=== PATIENT | male | born 1955 | race Two or more races ===

== ENCOUNTER → 2023-06-20 | Emergency (ER) | payer OTHER, MEDICAID ==
[~2023-06-20] VITALS: Ht 165.1 cm; Wt 50.9 kg
[~2023-06-20] MED LIST: MORPHINE SULFATE 4 MG/ML SYR/VIAL IV ONE; ONDANSETRON HCL 4 MG/2 ML VIAL IV ONE; SODIUM CHLORIDE 0.9% 1,000 ML IV ONE; SODIUM CHLORIDE 0.9% 1,000 ML IVB ONE
[2023-06-20 14:35] VITALS: BP 124/69; PULSE 60; RESP 18; O2SAT 99
== END | disposition left against medical advice (07) ==
LOC: ER 14:01
DX: R10.84 Generalized abdominal pain (principal); R11.2 Nausea with vomiting, unspecified; K59.00 Constipation, unspecified
CPT/HCPCS: 93005

== ENCOUNTER 2023-06-29 14:03 | Emergency (ER) | payer OTHER ==
[~2023-06-29] VITALS: Ht 157.5 cm; Wt 54.4 kg
[2023-06-29 14:35] LABS: Basophils # (auto) 0 10 ^3/uL (0-0.2); Basophils % (auto) 0.6 % (0.0-2.0); Eosinophils # (auto) 0.4 10 ^3/uL (0-0.8); Eosinophils % (auto) 5.9 % (0.0-7.0); Hematocrit 34.3 % (41.0-53.0); Hemoglobin 11.3 g/dL (13.5-17.5); Lymphocytes # (auto) 1.9 10 ^3/uL (0.4-5.4); Lymphocytes % (auto) 25.7 % (10.0-50.0); Mean Corpuscular Hemoglobin 30.5 pg (28.0-32.0); Mean Corpuscular Hgb Conc. 32.9 g/dL (32.0-36.0); Monocytes # (auto) 0.9 10 ^3/uL (0-1.3); Monocytes % (auto) 11.6 % (0.0-12.0); Neutrophils # (auto) 4.2 10 ^3/uL (1.6-8.6); Neutrophils % (auto) 56.2 % (37.0-80.0); Red Blood Cells 3.69 10^6/uL (4.5-5.90); Red Cell Distribution Width 13.8 % (11.8-14.3); White Blood Cell 7.5 10^3/uL (4.4-10.8)
[2023-06-29 14:55] LABS: Alanine Aminotransferase 20 U/L (7-40); Albumin 3.3 g/dL (3.2-4.8); Alkaline Phosphatase 92 U/L (46-116); Anion Gap 7 (5-15); Aspartate Aminotransferase 29 U/L (13-40); BUN/Creatinine Ratio 14.9 (10.0-20.0); Blood Urea Nitrogen 10 mg/dL (9-23); Calcium 8.6 mg/dL (8.7-10.4); Carbon Dioxide 28 mmol/L (20-30); Chloride 105 mmol/L (98-107); Glucose 91 mg/dL (74-106); Lipase 42 U/L (12-53); Potassium 4.3 mmol/L (3.5-5.1); Sodium 140 mmol/L (136-145)
[2023-06-29 14:56] LABS: Bilirubin, Total 0.2 mg/dL (0.2-1.0); Total Protein 5.7 g/dL (5.7-8.2)
[2023-06-29] MEDS ORDERED: DOCUSATE SOD 100 MG CAP PO ONE (16:15)
[2023-06-29 16:27] VITALS: BP 112/75; PULSE 64; RESP 18; TEMP 99.2; O2SAT 99
[2023-06-29] MEDS ORDERED: POLYETHYLENE GLYCOL 17 GM PWDR PO ONE (17:45)
== END 2023-06-29 18:06 | disposition left against medical advice (07) ==
LOC: ER 14:03
DX: R10.84 Generalized abdominal pain (principal); Z98.890 Other specified postprocedural states
CPT/HCPCS: 36415; 71045; 74176; 80053; 83690; 84484; 85025; 93005

== ENCOUNTER 2023-06-30 11:42 | Observation (INO) | payer OTHER ==
[~2023-06-30] VITALS: Ht 157.5 cm; Wt 53.8 kg
[2023-06-30] MEDS ORDERED: ONDANSETRON HCL 4 MG/2 ML VIAL IV ONE (12:30)
[2023-06-30] MEDS ORDERED: MORPHINE SULFATE 4 MG/ML SYR/VIAL IV ONE (12:30)
[2023-06-30] MEDS ORDERED: SODIUM CHLORIDE 0.9% 500 ML IVB ONE (12:30)
[2023-06-30] MEDS ORDERED: PANTOPRAZOLE 40 MG/10 ML VIAL INJ IV ONE (12:30)
[2023-06-30 12:43] LABS: Basophils # (auto) 0.1 10 ^3/uL (0-0.2); Basophils % (auto) 0.5 % (0.0-2.0); Eosinophils # (auto) 0.2 10 ^3/uL (0-0.8); Eosinophils % (auto) 1.6 % (0.0-7.0); Hematocrit 34.9 % (41.0-53.0); Hemoglobin 11.5 g/dL (13.5-17.5); Lymphocytes # (auto) 1.4 10 ^3/uL (0.4-5.4); Mean Corpuscular Hemoglobin 30.5 pg (28.0-32.0); Mean Corpuscular Hgb Conc. 32.9 g/dL (32.0-36.0); Mean Corpuscular Volume 92.6 fL (80.0-100.0); Monocytes # (auto) 1.1 10 ^3/uL (0-1.3); Monocytes % (auto) 7.9 % (0.0-12.0); Neutrophils # (auto) 11.1 10 ^3/uL (1.6-8.6); Red Blood Cells 3.77 10^6/uL (4.5-5.90); Red Cell Distribution Width 13.5 % (11.8-14.3); White Blood Cell 13.9 10^3/uL (4.4-10.8)
[2023-06-30 13:00] LABS: Alanine Aminotransferase 13 U/L (7-40); Albumin 3.6 g/dL (3.2-4.8); Alkaline Phosphatase 77 U/L (46-116); Anion Gap 3 (5-15); Aspartate Aminotransferase 27 U/L (13-40); BUN/Creatinine Ratio 10.4 (10.0-20.0); Bilirubin, Total 0.5 mg/dL (0.2-1.0); Blood Urea Nitrogen 7 mg/dL (9-23); Calcium 8.7 mg/dL (8.5-10.1); Carbon Dioxide 29 mmol/L (20-30); Chloride 103 mmol/L (98-107); Glucose 99 mg/dL (74-106); Potassium 4.1 mmol/L (3.5-5.1); Total Protein 6.3 g/dL (5.7-8.2)
[2023-06-30 13:12] LABS: Sodium 135 mmol/L (136-145)
[2023-06-30 13:23] LABS: Lipase 38 U/L (12-53)
[2023-06-30] MEDS ORDERED: MORPHINE SULFATE INJ 2 MG/ml SYRG IV PRN ×3 (16:15→18:00)
[2023-06-30] MEDS ORDERED: ONDANSETRON HCL 4 MG/2 ML VIAL IV PRN (16:15)
[2023-06-30] MEDS ORDERED: SODIUM CHLORIDE 0.9% 1,000 ML IV SCH (16:15)
[2023-06-30] MEDS ORDERED: NITROGLYCERIN 0.4 MG SL TAB SL PRN (16:15)
[2023-06-30 18:22] VITALS: RESP 16; O2SAT 94
[2023-06-30 20:00] VITALS: PULSE 60; RESP 16; O2SAT 100
[2023-06-30] MEDS ORDERED: D5W/SOD CHLO 0.9% 1,000 ML IV ONE (22:30)
[2023-06-30] MEDS: NICOTINE 14 MG/24HR TOPICAL PATCH TD SCH (23:02)
[2023-07-01 06:01] LABS: Basophils # (auto) 0.1 10 ^3/uL (0-0.2); Basophils % (auto) 0.7 % (0.0-2.0); Eosinophils # (auto) 0.5 10 ^3/uL (0-0.8); Eosinophils % (auto) 5.6 % (0.0-7.0); Hematocrit 32.3 % (41.0-53.0); Hemoglobin 10.7 g/dL (13.5-17.5); Lymphocytes # (auto) 2.3 10 ^3/uL (0.4-5.4); Lymphocytes % (auto) 25.8 % (10.0-50.0); Mean Corpuscular Hemoglobin 30.6 pg (28.0-32.0); Mean Corpuscular Hgb Conc. 33.1 g/dL (32.0-36.0); Mean Corpuscular Volume 92.5 fL (80.0-100.0); Monocytes # (auto) 0.8 10 ^3/uL (0-1.3); Monocytes % (auto) 9.1 % (0.0-12.0); Neutrophils # (auto) 5.3 10 ^3/uL (1.6-8.6); Neutrophils % (auto) 58.8 % (37.0-80.0); Red Blood Cells 3.49 10^6/uL (4.5-5.90); Red Cell Distribution Width 13.4 % (11.8-14.3); White Blood Cell 8.9 10^3/uL (4.4-10.8)
[2023-07-01 06:34] LABS: Alanine Aminotransferase 12 U/L (7-40); Alkaline Phosphatase 67 U/L (46-116); Anion Gap 6 (5-15); Aspartate Aminotransferase 20 U/L (13-40); BUN/Creatinine Ratio 10.6 (10.0-20.0); Blood Urea Nitrogen 7 mg/dL (9-23); Calcium 8.2 mg/dL (8.7-10.4); Carbon Dioxide 26 mmol/L (20-30); Chloride 104 mmol/L (98-107); Glucose 80 mg/dL (74-106); Potassium 3.9 mmol/L (3.5-5.1); Sodium 136 mmol/L (136-145)
[2023-07-01 06:35] LABS: Bilirubin, Total 0.5 mg/dL (0.2-1.0); Total Protein 5.4 g/dL (5.7-8.2)
[2023-07-01 06:59] LABS: Urine Bacteria NONE SEEN /hpf (None Seen); Urine Blood Negative /uL (Negative); Urine Clarity Clear (Clear); Urine Color Yellow (Yellow); Urine Protein, UAD Negative (Negative); Urine Specific Gravity 1.012 (1.001-1.035); Urine Urobilinogen Normal (Negative); Urine WBC 1 /hpf (0 - 3)
[2023-07-01 07:20] VITALS: PULSE 81; RESP 17; O2SAT 96
[2023-07-01] MEDS ORDERED: IOHEXOL 300 MG/ML 100ML BOTTLE IJ ONE (07:42)
[2023-07-01] MEDS ORDERED: OMNIPAQUE 12mg/ml 500ml ORAL SOLUTION PO ONE (07:42)
[2023-07-01] MEDS ORDERED: NICOTINE 14 MG/24HR TOPICAL PATCH TD SCH (10:00)
[2023-07-01] MEDS: PANTOPRAZOLE 40 MG/10 ML VIAL INJ IV SCH ×2 (10:00→11:56)
[2023-07-01] MEDS ORDERED: ENOXAPARIN SOD 40 MG/0.4 ML SYRINGE SC SCH (10:00)
[2023-07-01] MEDS: NICOTINE 14 MG/24HR TOPICAL PATCH TD SCH (11:25)
[2023-07-01] MEDS ORDERED: PANT40TA2 PO (15:19)
[2023-07-01 15:42] VITALS: BP 120/66; PULSE 78; RESP 20; TEMP 97.6; O2SAT 98
== END 2023-07-01 15:42 | disposition home or self-care (01) ==
LOC: ER 11:42 → OVERFLOW 16:15
PROVIDERS: ADMIT Student in an Organized Health Care Education/Training Program; ATTEND Student in an Organized Health Care Education/Training Program
DX: K80.20 Calculus of gallbladder without cholecystitis without obstruction (principal); D72.829 Elevated white blood cell count, unspecified; K59.00 Constipation, unspecified; B19.20 Unspecified viral hepatitis C without hepatic coma; F15.91 Other stimulant use, unspecified, in remission; I86.4 Gastric varices; R18.8 Other ascites; K21.9 Gastro-esophageal reflux disease without esophagitis; K76.6 Portal hypertension; F17.210 Nicotine dependence, cigarettes, uncomplicated; Z90.89 Acquired absence of other organs
CPT/HCPCS: 36415; 74177; 76705; 80053; 81001; 83690; 85025; 93005; 96361; 96372; 96374; 96375; 96376; 99285; C9113; G0378; J1650; J2270; J2405; Q9967

== ENCOUNTER 2023-07-11 14:15 | Emergency (ER) | payer OTHER ==
[~2023-07-11] VITALS: Ht 157.5 cm; Wt 72.7 kg
[~2023-07-11 14:15] MED LIST changes: -MORPHINE SULFATE 4 MG/ML SYR/VIAL IV ONE; -ONDANSETRON HCL 4 MG/2 ML VIAL IV ONE; +PANT40TA2 PO; -SODIUM CHLORIDE 0.9% 1,000 ML IV ONE; -SODIUM CHLORIDE 0.9% 1,000 ML IVB ONE
[2023-07-11] MEDS ORDERED: MORPHINE SULFATE 4 MG/ML SYR/VIAL IV ONE (14:30)
[2023-07-11] MEDS ORDERED: ONDANSETRON HCL 4 MG/2 ML VIAL IV ONE (14:30)
[2023-07-11 15:05] LABS: Basophils # (auto) 0.1 10 ^3/uL (0-0.2); Eosinophils # (auto) 0.1 10 ^3/uL (0-0.8); Eosinophils % (auto) 2.5 % (0.0-7.0); Hematocrit 30.9 % (41.0-53.0); Hemoglobin 10.2 g/dL (13.5-17.5); Lymphocytes % (auto) 17.2 % (10.0-50.0); Mean Corpuscular Hemoglobin 29.9 pg (28.0-32.0); Mean Corpuscular Volume 90.7 fL (80.0-100.0); Monocytes # (auto) 0.9 10 ^3/uL (0-1.3); Monocytes % (auto) 15.7 % (0.0-12.0); Neutrophils # (auto) 3.7 10 ^3/uL (1.6-8.6); Neutrophils % (auto) 63.6 % (37.0-80.0); Nucleated Red Blood Cells % 0.1 %; Red Blood Cells 3.41 10^6/uL (4.5-5.90); Red Cell Distribution Width 13.5 % (11.8-14.3); White Blood Cell 5.9 10^3/uL (4.4-10.8)
[2023-07-11 15:45] LABS: Alanine Aminotransferase 23 U/L (7-40); Albumin 3.9 g/dL (3.2-4.8); Alkaline Phosphatase 92 U/L (46-116); Anion Gap 6 (5-15); Aspartate Aminotransferase 44 U/L (13-40); BUN/Creatinine Ratio 14.3 (10.0-20.0); Blood Urea Nitrogen 10 mg/dL (9-23); Calcium 8.9 mg/dL (8.7-10.4); Carbon Dioxide 26 mmol/L (20-30); Chloride 101 mmol/L (98-107); Glucose 77 mg/dL (74-106); Potassium 3.7 mmol/L (3.5-5.1); Sodium 133 mmol/L (136-145)
[2023-07-11 15:46] LABS: Bilirubin, Total 0.7 mg/dL (0.2-1.0); Total Protein 6.6 g/dL (5.7-8.2)
[2023-07-11] MEDS ORDERED: IOHEXOL 300 MG/ML 100ML BOTTLE IJ ONE (16:25)
[2023-07-11 17:43] LABS: Urine Bacteria NONE SEEN /hpf (None Seen); Urine Blood Negative /uL (Negative); Urine Clarity Clear (Clear); Urine Color Yellow (Yellow); Urine Mucus FEW (None Seen); Urine Protein, UAD TRACE (Negative); Urine Specific Gravity 1.022 (1.001-1.035); Urine WBC 1 /hpf (0 - 3); Urine pH 7.5 (5.0-8.0)
[2023-07-11 21:06] VITALS: BP 140/82; PULSE 92; RESP 17; TEMP 98.6; O2SAT 95
== END 2023-07-12 03:39 | disposition home or self-care (01) ==
LOC: EDBD 14:15 → ER 14:15 → EDUNIT# 14:15 → ER 07-12 03:39
DX: R10.32 Left lower quadrant pain (principal); R11.2 Nausea with vomiting, unspecified; R50.9 Fever, unspecified; K80.20 Calculus of gallbladder without cholecystitis without obstruction; F17.210 Nicotine dependence, cigarettes, uncomplicated; Z98.890 Other specified postprocedural states; Z79.899 Other long term (current) drug therapy
CPT/HCPCS: 36415; 74177; 80053; 81001; 85025; 96374; 96375; 99285; J2270; J2405; Q9967